=== PATIENT | male | born 1940 | race Two or more races ===

== ENCOUNTER 2018-12-02 16:27 | Emergency (ER) | payer MEDICARE, OTHER ==
[2018-12-02 16:41] LABS: ADD MAN DIFF? NO
[2018-12-02 16:59] LABS: WHITE BLOOD COUNT 10.6 10^3/ul (4.8-10.8)
[2018-12-02 16:59] LABS: BASOPHIL # 0.1 10^3/ul (0.0-0.1); BASOPHILS % 0.7 % (0.0-2.0); EOSINOPHILS # 0.2 10^3/ul (0.0-0.5); EOSINOPHILS % 1.7 % (0.0-7.0); HEMATOCRIT 40.7 % (42.0-52.0); HEMOGLOBIN 12.9 g/dl (14.0-18.0); LYMPHOCYTES # 1.5 10^3/ul (0.8-2.9); MEAN CORPUSCULAR HEMOGLOBIN 29.6 pg (29.0-33.0); MEAN CORPUSCULAR HGB CONC 31.7 g/dl (32.0-37.0); MEAN CORPUSCULAR VOLUME 93.3 fl (82.0-101.0); MEAN PLATELET VOLUME 8.7 fl (7.4-10.4); MONOCYTE # 0.5 10^3/ul (0.3-0.9); MONOCYTES % 4.5 % (0.0-11.0); NEUTROPHIL # 8.4 10^3/ul (1.6-7.5); NEUTROPHILS % 78.7 % (39.0-77.0); PLATELET COUNT 229 10^3/UL (140-415); RED BLOOD COUNT 4.36 10^6/ul (4.70-6.10)
[2018-12-02 17:03] LABS: ANION GAP 8 (5-13); BLOOD UREA NITROGEN 40 mg/dl (7-20); CALCIUM 8.8 mg/dl (8.4-10.2); CARBON DIOXIDE 20 mmol/L (21-31); CHLORIDE 112 mmol/L (97-110); CHOLESTEROL 155 mg/dl (100-200); CREATINE KINASE 29 IU/L (23-200); CREATININE 2.18 mg/dl (0.61-1.24); GLUCOSE 127 mg/dl (70-220); HDL CHOLESTEROL 31 mg/dl (31-75); LDL CHOLESTEROL,CALCULATED 70 mg/dl; PARTIAL THROMBOPLASTIN TIME 28.6 Sec (23.0-35.0); POTASSIUM 5.5 mmol/L (3.5-5.1); PROTIME 13.3 Sec (11.9-14.9); SODIUM 140 mmol/L (135-144); TRIGLYCERIDES 271 mg/dl (0-149)
[2018-12-02 17:04] LABS: ETHANOL < 10.0 mg/dl (0-0)
[2018-12-02] MEDS: ALTEPLASE (tPA) 1 MG/ML BOLUS SYG IV* (17:04)
[2018-12-02] MEDS: ALTEPLASE 100 MG INJ IV* (17:05)
[2018-12-02 17:14] LABS: CK INDEX 2.3; CK-MB 0.68 ng/ml (0.0-2.4); TROPONIN-I < 0.012 ng/ml (0.000-0.120)
[2018-12-02 17:14] LABS: HEMOGLOBIN A1C 5.3 % (0-5.9)
[2018-12-02] MEDS ORDERED: SOD CHLORIDE 0.9% 100 ML (17:19)
[2018-12-02] MEDS ORDERED: IOHEXOL 100 ML (17:19)
[2018-12-02] MEDS: SOD CHLORIDE 0.9% 50 ML IV (17:52)
[2018-12-02] MEDS ORDERED: LABETALOL HCL 20MG INJ IV (18:00)
== END 2018-12-02 18:52 | disposition short-term general hospital (02) ==
LOC: E/R 18:52
DX: I63.9 Cerebral infarction, unspecified (principal); N28.9 Disorder of kidney and ureter, unspecified; R40.2122 Coma scale, eyes open, to pain, at arrival to emergency department; R40.2212 Coma scale, best verbal response, none, at arrival to emergency department; R40.2342 Coma scale, best motor response, flexion withdrawal, at arrival to emergency department
CPT/HCPCS: 37195; 70450; 70496; 70498; 71045; 80048; 80061; 80307; 82550; 82553; 82962; 83036; 84484; 85025; 85610; 85730; 86850; 86900; 86901; 93005; 99285-25